=== PATIENT | male | born 1995 | race Caucasian/White ===

== ENCOUNTER 2022-09-27 12:27 | Emergency (ER) | payer OTHER, SELFPAY ==
[2022-09-27 12:29] VITALS: BP 141/96; PULSE 93; RESP 15; TEMP 36.6; O2SAT 100
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
[2022-09-27] MEDS: Morphine 4 MG/ML Syringe IM (12:46)
[2022-09-27 13:30] VITALS: PULSE 79; RESP 13; O2SAT 97
[2022-09-27] MEDS: Diphth,Pertuss(Acell),Tet Vac 0.5 ML Vial IM (13:59)
[2022-09-27] MEDS: Cephalexin 250 MG Capsule 500 MG PO (14:00)
--- NOTE | 2022-09-27 14:04 | CM.ED ---
Tracker noted that patient has no PCP. SW met with patient. He resides in [facility]. No further SW needs at this time, however, this newspaper writer remains available if needs arise. Shaneka MOREL
[2022-09-27 14:11] VITALS: BP 134/81; PULSE 83; RESP 16; O2SAT 100; BMI 19.2
== END 2022-09-27 14:19 | disposition home or self-care (01) ==
PROVIDERS: Emergency Provider Emergency Medicine; Visit Provider Emergency Medicine
DX: S01.21XA Laceration without foreign body of nose, initial encounter (principal); S02.2XXA Fracture of nasal bones, initial encounter for closed fracture; F17.290 Nicotine dependence, other tobacco product, uncomplicated; V43.52XA Car driver injured in collision with other type car in traffic accident, initial encounter; Y92.410 Unspecified street and highway as the place of occurrence of the external cause; Z23 Encounter for immunization
CPT/HCPCS: 12011; 70450; 70486; 90471; 90715; 96372; 99284; A4216